=== PATIENT | male | born 1955 ===

== ENCOUNTER → 2020-11-13 | Outpatient (CLI) | payer MEDICARE, OTHER ==
--- OUTSIDE RECORDS SUMMARY | 2020-11-13 16:46 | XMS REPORT ---
:1955 Author Organization [facility] Address [address] [address] Care Team Providers Name Role Phone Radha Miller Primary Care Physician Unavailable Demarco VELASQUEZ Attending Clinician Unavailable Allergies, Adverse Reactions, Alerts Allergy Name Allergy Status Severity Reaction(s) Onset Inactive Treat ing Comments Type Date Date Clinician BACITRACIN Drug Active Unknown ZINC allergy - 00:00: 00 BACITRACIN Drug Active Unknown 0 allergy - 00:00: 00 NEOMYCIN Drug Active Unknown SULFATE allergy - 00:00: 00 POLYMYXIN B Drug Active Unknown allergy -15 00:00: 00 Neosporin Neosporin Active OINT OINT Medications Ordered Filled Start Stop Current Ordering Indication Dosage Frequency Signature Comments Components Medication Medication Date Date Medication? Clinician (SIG) Name Name Lisinopril- Yes Radha 1 QD Lisinopril hydroCHLORO 11-01 Paul PETE -hydroCHLO thiazide 00:00: ROthiazide 20-12.5 MG 00 20-12.5 MG Oral Tablet Oral Tablet TAKE 1 TABLET DAILY. Quantity: 90 Refills: 1 Radha Rodriguez Start : 01-Nov-2020 Active Doxycycline 2019-0 No Radha Q0.5D Doxycyclin Hyclate 100 07-05 Paul PETE e Hyclate MG Oral 00:00: 100 MG Capsule 00 Oral Capsule TAKE 1 CAPSULE TWICE DAILY UNTIL GONE. Quantity: 14 Refills: 0 Radha Rodriguez Start : 0Active Doxycycline 2020-0 No Radha Q0.5D Doxycyclin Hyclate 100 07-05 Paul PETE e Hyclate MG Oral 00:00: 100 MG Capsule 00 Oral Capsule TAKE 1 CAPSULE TWICE DAILY UNTIL GONE. Quantity: 14 Refills: 0 Radha Rodriguez Start : 0Active Doxycycline 2020-0 No Radha Q12H Doxycyclin Hyclate 100 6- Paul PETE e Hyclate MG Oral 00:00: 100 MG Tablet 00 Oral Tablet TAKE 1 TABLET EVERY 12 HOURS DAILY. Quantity: 20 Refills: 0 Radha Rodriguez Start : 02-Apr-2020 Active Rosuvastati 2019-0 No Radha 1 Rosuvastat n Calcium 04-02 Paul PETE in Calcium 10 MG Oral 00:00: 10 MG Oral Tablet 00 Tablet TAKE 1 TABLET AT BEDTIME. Quantity: 90 Refills: 1 Radha Rodriguez Start : 02-Apr-2020 Active Meloxicam 2019-0 No Radha Meloxicam 7.5 MG Oral 04-02 Paul PETE 7.5 MG Tablet 00:00: Oral 00 Tablet TAKE 1 TABLET DAILY NEEDED. DO NOT TAKE IN COMBINATIO N WITH OTHER OTC NSAIDS. Quantity: 90 Refills: 1 Radha Rodriguez Start : 02-Apr-2020 Active Meloxicam 2019-0 Yulissa Mercedes QD Meloxicam 15 MG Oral 04-02 Towarnicky 15 MG Oral Tablet 00:00: MD Tablet 00 TAKE 1 TABLET DAILY WITH FOOD. Quantity: 90 Refills: 1 El Winters MD Start : 02-Apr-2020 Active Dupixent 2019-0 No Dupixent 300 MG/2ML 2-03 300 MG/2ML Subcutaneou 00:00: Subcutaneo s Solution 00 us Prefilled Solution Syringe Prefilled Syringe Quantity: 4 Refills: 0 Start : 27-Nov-2019 Active Dupixent 2019-0 Yes Dupixent 300 MG/2ML 2-03 300 MG/2ML Subcutaneou 00:00: Subcutaneo s Solution 00 us Prefilled Solution Syringe Prefilled Syringe Quantity: 4 Refills: 0 Start : 27-Nov-2019 Active Betamethaso 0 No Betamethas ne Valerate 7-08 one 0.1 % 00:00: Valerate External 00 0.1 % Cream External Cream Quantity: 45 Refills: 0 Start : 01-May-2019 Active Fluticasone 2018- Yes Valorie Fluticason Propionate 02-20 Francisco PETE e 50 MCG/ACT 00:00: Propionate Nasal 00 50 MCG/ACT Suspension Nasal Suspension USE 1 SPRAY IN EACH NOSTRIL ONCE DAILY, as needed Quantity: 3 Refills: 1 Valorie Ordonez Start : 9Active 9.9 ML Bottle Lisinopril No Radha .5 QD Lisinopril 20 MG Oral Yagoda PA 20 MG Oral Tablet Tablet TAKE 0.5 TABLET DAILY Quantity: 45 Refills: 1 Radha Rodriguez Active [facility] Vitamin Yes 1 QD [facility] D3 1000 Vitamin D3 UNIT CAPS 1000 UNIT CAPS TAKE 1 CAPSULE DAILY Refills: 0 Active Lidoderm 5 Yes Lidoderm 5 % External % External Patch Patch APPLY 1 PATCH TO THE AFFECTED AREA AND LEAVE IN PLACE FOR 12 HOURS, THEN REMOVE AND LEAVE OFF FOR 12 HOURS. Refills: 0 Active Refresh Yes Valorie 1 Q0.25D Refresh Plus 0.5 % Francisco PETE Plus 0.5 % Ophthalmic Ophthalmic Solution Solution INSTILL 1 DROP 4 times daily Both eyes Quantity: 3 Refills: 1 Valorie Ordonez Active Lisinopril No Radha .5 QD Lisinopril 20 MG Oral Yagoda PA 20 MG Oral Tablet Tablet TAKE 0.5 TABLET DAILY Quantity: 45 Refills: 1 Radha Rodriguez Active Lisinopril No Radha 1 QD Lisinopril 20 MG Oral Yagoda PA 20 MG Oral Tablet Tablet TAKE 1 TABLET DAILY Quantity: 90 Refills: 1 Radha Rodriguez Active Problems Condition Condition Condition Status Onset Resolution Last Treatin g Comments Name Details Category Date Date Treatment Clinician Date TMJ TMJ Problem Active (temporoman (temporoman dibular dibular joint joint disorder) disorder) Headache Headache Problem Active Dyspnea on Dyspnea on Problem Active exertion exertion Rhinitis, Rhinitis, Problem Active nonallergic nonallergic Left ankle Left ankle Problem Active pain pain Right ankle Right ankle Problem Active sprain sprain Abnormal Abnormal Problem Active urinalysis urinalysis Elevated Elevated Problem Active ALT ALT measurement measurement Essential Essential Problem Active hypertensio hypertensio n n Prediabetes Prediabetes Problem Active Thrombocyto Thrombocyto Problem Active penia penia Tendinitis Tendinitis Problem Active of left of left forearm forearm Hidradeniti Hidradeniti Problem Active s s suppurativa suppurativa SHAINA on CPAP SHAINA on CPAP Problem Active Mixed Mixed Problem Active hyperlipide hyperlipide paola paola Encounter Encounter Problem Active for for health-rela health-rela graeme graeme screening screening Procedures Procedure Date / Time Performed Performing Clinician Ramos morris CBC 2020-11-04 00:00:00 CMP(Complete Metabolic Panel) 2020-11-04 00:00:00 HGBA1C 2020-11-04 00:00:00 Urinalysis 2020-11-04 00:00:00 US-Abdominal 2020-11-04 00:00:00 CMP(Complete Metabolic Panel) 2020-07-05 00:00:00 Lipid Panel 2020-07-05 00:00:00 Urinalysis 2020-07-05 00:00:00 PSA 2020-07-05 00:00:00 History of Craniotomy History of Knee arthroscopy Results Test Description Test Time Test Comments Text Results Atomic Results Result Comments Urinalysis 2020-08-16 10:55:00 Test Item Value Reference Range Comments Urine Color (test code = Urine YELLOW Yellow Color) Urine Clarity (test code = CLEAR Clear Urine Clarity) Urine Glucose (test code = NEGATIVE Negative Urine Glucose) Urine Ketones (test code = NEGATIVE Negative Urine Ketones) Urine Bilirubin (test code = NEGATIVE Negative Urine Bilirubin) Urine Specific [place] (test 1.030 1.010-1.030 Ref ractometer code = Urine Specific [place]) Urine Blood (test code = Urine NEGATIVE Negative Blood) Urine pH (test code = Urine pH) 6.0 5.0-8.0 Urine Protein (test code = TRACE Negative urine microscopic; 0-2 wbc, Urine Protein) 2+mucus, 0-2 epi Urine Urobilinogen (test code = 0.2 Eu/dl 0.2 Urine Urobilinogen) Urine Nitrites (test code = NEGATIVE Negative Urine Nitrites) Urine Leukocytes (test code = NEGATIVE Negative Urine Leukocytes) CMP(Complete Metabolic Panel)2020-08-16 10:55:00 Test Item Value Reference Range Comments Glucose (test code = Glucose) 102 mg/dL 74-106 Sodium (test code = Sodium) 143 mmol/L 135-145 Potassium (test code = Potassium) 3.7 mmol/L 3.5-5.3 Chloride (test code = Chloride) 109 mmol/L 98-107 CO2 (test code = CO2) 25 mmol/L 22-30 Creatinine, serum (test code = Creatinine, serum) 0.90 mg/dL 0.10-1.25 Glomerular Filtration Rate (test code = >60 >60 Glomerular Filtration Rate) Glomerular Filtration Rate AA (test code = >60 >60 Glomerular Filtration Rate AA) Blood Urea Nitrogen (test code = Blood Urea 10 mg/dL 9-20 Nitrogen) Calcium (test code = Calcium) 9.2 mg/dL 8.4-10.5 Phosphorus (test code = Phosphorus) 2.6 mg/dL 2.5-4.5 Total Protein (test code = Total Protein) 7.1 g/dL 6.3-8. 2 Albumin (test code = 20136-8) 4.3 g/dL 3.5-5.0 Total Bilirubin (test code = Total Bilirubin) 0.2 mg/dL 0. 2-1.3 Bilirubin, unconj (test code = Bilirubin, unconj) 0.1 mg/dL 0.0-1.1 Bilirubin, Direct (test code = Bilirubin, Direct) 0.1 mg/dL 0.0-0.4 Alkaline Phosphatase (test code = Alkaline 72 U/L 20-15 0 Phosphatase) Alanine Transaminase (test code = Alanine 56 U/L 0-50 Transaminase) Aspartate Aminotransferase (test code = Aspartate 35 U/L 3-36 Aminotransferase) Lipid [id number] 10:55:00 Test Item Value Reference Range Comments Chol/HDL Ratio (test code = 2089-1) 4.4 {ratio} 0.0-6.0 High Density Lipoprotein Cholesterol (test code 50 mg/dL 40-110 = High Density Lipoprotein Cholesterol) Low Density Lipoprotein, calculated (test code = 150 mg/dL 1-130 Low Density Lipoprotein, calculated) [id number] 10:55:00 Test Item Value Reference Range Comments PSA, total (test code = 1.110 ng/mL 0.000-4.000 PSA perf ormed on Vitros 5600 by PSA, total) Immunometric met hod. Assessments Condition Name Status Diagnosis Date Treating Clinici an TMJ (temporomandibular joint disorder) Active Abnormal urinalysis Active Right ankle sprain Active Elevated ALT measurement Active SHAINA on CPAP Active TMJ (temporomandibular joint disorder) Active Essential hypertension Active Mixed hyperlipidemia Active Hidradenitis suppurativa Active Prediabetes Active Tendinitis of left forearm Active History of hypertension Active Caffeine use Active History of hyperlipidemia Active History of cataract Active Dyspnea on exertion Active Essential hypertension Active Family history of stroke Active Unilateral deafness Active Headache Active Family history of coronary artery disease Active Family history of pancreatic cancer Active Former smoker Active Family history of hyperlipidemia Active History of hyperglycemia Active Prediabetes Active Essential hypertension Active Rhinitis, nonallergic Active Elevated ALT measurement Active Dyspnea on exertion Active Headache Active Thrombocytopenia Active Prediabetes Active Left ankle pain Active Right ankle sprain Active Elevated ALT measurement Active Essential hypertension Active Thrombocytopenia Active Prediabetes Active Essential hypertension Active Thrombocytopenia Active Prediabetes Active Abnormal urinalysis Active Elevated ALT measurement Active SHAINA on CPAP Active Essential hypertension Active Mixed hyperlipidemia Active Thrombocytopenia Active Hidradenitis suppurativa Active Prediabetes Active Tendinitis of left forearm Active Encounter for health-related screening Active Encounters Start End Encounter Admission Attending Care Care Encounter Date/Time Date/Time Type Type Clinicians Facility Department ID 2020-11-12 2020-11-11 Appointment [place] Pal [facility] [id number] 11:10:00 14:00:12 ; Mark Pal MD 2020-11-01 2020-11-01 Appointment [facility] [id number] 10:00:00 10:00:00 ; Radha Miller PA 2020-08-16 2020-08-16 Appointment [facility] [id number] 10:55:00 10:55:00 ; SUZY morris, Clinical 2020-08-16 2020-08-16 Appointment [facility] [id number] 10:55:00 10:55:00 ; SUZY morris, Lab WB 2020-07-05 2020-07-05 Appointment [facility] [id number] 11:00:00 11:00:00 ; Radha Miller PA 2020-05-03 2020-05-03 Appointment [facility] [id number] 12:35:00 12:35:00 ; SUZY morris, Clinical WB 2020-04-02 2020-04-02 Appointment [facility] [id number] 11:30:00 11:30:00 ; Radha Miller PA 2020-03-29 2020-03-29 Appointment [facility] [id number] 09:10:00 09:10:00 ; SUZY morris, Lab WB 2019-12-05 2019-12-05 Appointment [facility] [id number] 10:30:00 10:30:00 ; Valorie Singh PA 2019-11-15 2019-11-15 Appointment [facility] [id number] 08:55:00 08:55:00 ; SUZY morris, Lab WB 2019-05-19 2019-05-19 Appointment [facility] [id number] 10:55:00 10:55:00 ; SUZY morris, X-Ray 2019-05-19 2019-05-19 Appointment [facility] [id number] 10:30:00 10:30:00 ; Valorie Singh PA 2019-03-08 2019-03-08 Appointment [facility] [id number] 09:15:00 09:15:00 ; MARTINEZ vega, Nuclear 3 2019-02-20 2019-02-20 Appointment [facility] [id number] 13:30:00 13:30:00 ; Valorie Singh PA 2019-02-16 2019-02-16 Appointment [facility] [id number] 09:35:00 09:35:00 ; SUZY morris, Lab WB 2019-02-02 2019-02-02 Appointment [facility] [id number] 14:30:00 14:30:00 ; Valorie Singh PA Family History Family Member Diagnosis Comments Start Date Stop Date Mother Family history of hypertension Mother Family history of hyperlipidemia Mother Family history of stroke Mother Family history of pancreatic cancer Father Family history of hypertension Father Family history of coronary artery disease Father Family history of hyperlipidemia Immunizations Ordered Immunization Filled Immunization Date Status Commen ts Refusal Reason Name Name Fluzone High-Dose 2020-08-16 Completed Quadrivalent 0.7 ML 11:10:00 Intramuscular Suspension Prefilled Syringe Prevnar 13 2019-12-05 Completed Intramuscular 11:36:00 Suspension Flulaval Quadrivalent 2019-12-05 Completed 0.5 ML Intramuscular 11:30:00 Suspension Prefilled Syringe Plan of Treatment Planned Activity Planned Date Details Comments Future Scheduled Test [code = ] Future Scheduled Test [code = ] Future Scheduled Test [code = ] Future Scheduled Test [code = ] Social History Smoking Status Start Date Stop Date Ex-smoker (finding) Vital Signs Vital Name Observation Time Observation Value Comments Systolic blood pressure 2020-11-01 10:18:00 140 mm[Hg] Loca tion: LUE; Position: Sittin g Diastolic blood pressure 2020-11-01 10:18:00 80 mm[Hg] Loc ation: LUE; Position: Sittin g Weight 2020-11-01 10:18:00 224.25 [lb_av] Body mass index (BMI) 2020-11-01 10:18:00 32.64 kg/m2 [Ratio] Body temperature 2020-11-01 10:18:00 97.1 [degF] Heart Rate 2020-11-01 10:18:00 96 /min Location: R Radial; Quality: Regular O2 SAT 2020-11-01 10:18:00 98 % Source: RA Systolic blood pressure 2020-07-05 11:07:00 150 mm[Hg] Loca tion: LUE; Position: Sittin g Diastolic blood pressure 2020-07-05 11:07:00 94 mm[Hg] Loc ation: LUE; Position: Sittin g Weight 2020-07-05 11:07:00 221.25 [lb_av] Body mass index (BMI) 2020-07-05 11:07:00 32.2 kg/m2 [Ratio] Body temperature 2020-07-05 11:07:00 95.6 [degF] Heart Rate 2020-07-05 11:07:00 88 /min O2 SAT 2020-07-05 11:07:00 98 % Source: [facility] Hospital Discharge Instructions NameDatesDetailsInstructions not documentedNameDatesDetailsInstructions not documentedNameDatesDetailsInstructions not documented NameDatesDetailsInstructions not documented
--- NOTE | 2020-11-13 18:09 | RADIOLOGY REPORT (SQ) ---
EXAM DESCRIPTION: MRI LT UPPER JOINT WITHOUT IMAGES COMPLETED DATE/TIME: 11/13/2020 4:38 pm REASON FOR STUDY: (M25.522)PAIN IN LEFT ELBOW M25.522 PAIN IN LEFT ELBOW. Left elbow pain, decreas ed range of motion, stiffness, for 8 months. No known injury. COMPARISON: None. TECHNIQUE: Left elbow images acquired and stored on PACS. Multiplanar images to include fat sensitiv e sequences as T1, fluid sensitive sequences as T2/STIR, cartilage sensitive sequences as FSPD, and g radient echo sequences. LIMITATIONS: None. FINDINGS: BONE MARROW: No alteration of signal to suggest marrow replacement or edema. No occult fra cture. No large osteophytes. JOINT EFFUSION: None noted. No loose bodies. ARTICULAR SURFACES: Normal. MEDIAL COLLATERAL LIGAMENT COMPLEX: Intact without edema or tear. MEDIAL EPICONDYLE AND COMMON FLEXOR TENDON: No tendinopathy. No partial or full-thickness tear. LATERAL COLLATERAL LIGAMENT: Intact without edema or tear. LATERAL EPICONDYLE AND COMMON EXTENSOR TENDON: No tendinopathy. No partial or full-thickness tear. LATERAL ULNAR COLLATERAL LIGAMENT: Intact without evidence for tear. BICEPS TENDON: Intact. No partial or full-thickness tendon tear. No muscle edema. TRICEPS TENDON: Intact. ULNAR NERVE: Well-visualized without edema or encroachment. ADJACENT SOFT TISSUES: No masses or edema. OTHER: No other significant finding. IMPRESSION: No abnormality of the elbow. TECHNICAL DOCUMENTATION: JOB ID: [id number] 2010 [employer]- All Rights Reserved Reading location - IP/workstation name: [email or web address]
== END ==
LOC: RAD 16:40
PROVIDERS: ATTEND Physician Assistant
DX: M25.522 Pain in left elbow (principal)